=== PATIENT | female | born 1990 | race Caucasian/White ===

== ENCOUNTER 2023-08-19 20:01 | Inpatient (IN) | payer BC, OTHER ==
[~2023-08-19] VITALS: Ht 160 cm; Wt 94.3 kg
[2023-08-19 20:36] LABS: HEMATOCRIT 42.7 % (35.0-50.0); HEMOGLOBIN 14.5 g/dL (12.0-18.0); MCH 28.8 (27-36); MCV 84.6 fl (81-99); RBC 5.05 M/ul (4.3-5.7); RDW 13.5 (10.5-15.0)
[2023-08-19 21:14] LABS: ABO A; ANTIBODY SCREEN NEGATIVE; RH POSITIVE
[2023-08-19 22:00] LABS: AMPHETAMINES, URINE NEGATIVE (NEGATIVE); BARBITURATES, URINE NEGATIVE (NEGATIVE); BENZODIAZEPINE, URINE NEGATIVE (NEGATIVE); BUPRENORPHINE, URINE NEGATIVE (NEGATIVE); CANNABINOID, URINE NEGATIVE (NEGATIVE); COCAINE, URINE NEGATIVE (NEGATIVE); ECSTASY, URINE NEGATIVE (NEGATIVE); FENTANYL, URINE NEGATIVE (NEGATIVE); METHADONE, URINE NEGATIVE (NEGATIVE); OPIATES, URINE NEGATIVE (NEGATIVE); OXYCODONE, URINE NEGATIVE (NEGATIVE); PHENCYCLIDINE, URINE NEGATIVE (NEGATIVE)
[2023-08-20 00:16] VITALS: BP 126/67
[2023-08-20 05:40] LABS: HEMATOCRIT 36.8 % (35.0-50.0); HEMOGLOBIN 12.5 g/dL (12.0-18.0); MCV 85.1 fl (81-99); RBC 4.33 M/ul (4.3-5.7); RDW 13.9 (10.5-15.0)
--- NOTE | 2023-08-20 09:57 | PR ---
[facility] [address], [place] [address] Signed PP Progress Notes Datetime Report Generated by ROSALIO: 08/20/2023 09:57 SUBJECTIVE: [id number] Pain: Within Normal Limits Nausea/Vomiting: Denies Flatus: Yes Bowel Movement: No Vital Signs: [id number] Vital Signs: Reviewed; Within Normal Limits Cardiovascular: Not Done Respiratory: Not Done Abdomen/Uterus: Normal Lochia: Normal Vulva/Perineum: Not Done Breasts: Not Done CVA Tenderness: Normal Extremities: Normal Incision: Not Applicable Progress: Normal IMPRESSION/PLAN/PROCEDURES: [id number] Impression: Normal Progression Plan: Continue Present Management Procedures: None Progress Notes: S: 33 yo s/p vaginal delivery. PPD#1. Doing well. Denies BRUSH, CP, SOB, F/C, N/V, RUQ pain, changes in vision, vaginal discharge. Tolerating regular diet, ambulating, voiding on own, pain controlled. +Flatus. No BM. O: AFVSS Abd: Soft. Non-tender, non-distended. Fundus firm and below umbilicus. Musc: PRICE. No edema. A/P: 33 yo s/p vaginal delivery. PPD#1. Doing well. Doing well. Late night delivery. Will remain in house. Possible discharge home tomorrow AM. Pt was GBS positive and only received 1 dose of antibiotics prior to delivery. Signing Physician: Orestes Soto MD *Electronically Signed* 08/20/23 0957 ORESTES SOTO MD PATIENT NAME: BEBETO ÁLVAREZ PROGRESS NOTE DATE OF : 89 PHYSICIAN: ORESTES SOTO MD RPT #: [id number] REPORT IS CONFIDENTIAL AND NOT TO BE RELEASED WITHOUT AUTHORIZATION
--- NOTE | 2023-08-21 09:44 | PR ---
[facility] [address], [place] [address] Signed PP Progress Notes Datetime Report Generated by ROSALIO: 08/21/2023 09:44 SUBJECTIVE: [id number] Pain: Within Normal Limits Nausea/Vomiting: Denies Flatus: Yes Bowel Movement: Yes Vital Signs: [id number] Vital Signs: Reviewed; Within Normal Limits Cardiovascular: Not Done Respiratory: Not Done Abdomen/Uterus: Normal Lochia: Normal Vulva/Perineum: Not Done Breasts: Not Done CVA Tenderness: Normal Extremities: Normal Incision: Not Applicable Progress: Normal IMPRESSION/PLAN/PROCEDURES: [id number] Impression: Normal Progression Plan: Discharge Procedures: None Progress Notes: S: 33 yo s/p vaginal delivery. PPD #2. Doing well. Denies BRUSH, CP, SOB, F/C, N/V, RUQ pain, changes in vision, vaginal discharge. Tolerating regular diet, ambulating, voiding on own, pain controlled, +flatus and BM. No overnight events, concerns or complaints. O: AFVSS Abd: Soft. Non-tender. Fundus firm and below umbilicus. Musc: PRICE. No C/C/E. A/P: 33 yo s/p vaginal delivery. PPD #2. Doing well. Meeting all hospital milestones. Will discharge home today. Signing Physician: Julio C Evangelista MD *Electronically Signed* 08/21/23 0944 JULIO C EVANGELISTA MD PATIENT NAME: HENRIBEBETO PROGRESS NOTE DATE OF : 89 PHYSICIAN: JULIO C EVANGELISTA MD RPT #: [id number] REPORT IS CONFIDENTIAL AND NOT TO BE RELEASED WITHOUT AUTHORIZATION
--- NOTE | 2023-08-21 10:30 | NUR ---
ROUNDS. PT AND EXHIBITED [employer] AND [employer]ACQU[employer]INE RESOURCES. PROVIDED SUPPORTIVE PRESENCE; LISTENED EMPATHETICALLY; PROVIDED CHILD PSYCHOLOGIST EDUCATION; PROVIDED PRAYER. PT AND EXPRESSED GRATITUDE.
== END 2023-08-21 11:17 | disposition home or self-care (01) | DRG 807 ==
LOC: FBCO 20:01 → FBC 20:15
PROVIDERS: ADMIT Obstetrics & Gynecology; ATTEND Obstetrics & Gynecology
PROC: 10E0XZZ Delivery of Products of Conception, External Approach (ICD-10-PCS; principal; 2023-08-19)
PROC: 3E0R3BZ Introduction of Anesthetic Agent into Spinal Canal, Percutaneous Approach (ICD-10-PCS; 2023-08-19)
PROC: 00HU33Z Insertion of Infusion Device into Spinal Canal, Percutaneous Approach (ICD-10-PCS; 2023-08-19)
DX: O99.824 Streptococcus B carrier state complicating childbirth (principal); Z37.0 Single live birth; Z3A.38 38 weeks gestation of pregnancy; O69.81X0 Labor and delivery complicated by cord around neck, without compression, not applicable or unspecified; Z88.0 Allergy status to penicillin; Z87.891 Personal history of nicotine dependence
CPT/HCPCS: 01960; 36415; 80307; 85027; 86850; 86900; 86901; A9270; J2540; J2590; J2795; J3010; J7121